=== PATIENT | male | born 1995 | race Hispanic/Latino ===

== ENCOUNTER 2017-10-14 18:47 | Emergency (ER) | payer OTHER ==
[2017-10-14] MEDS: FAMOTIDINE 20 MG TAB PO (19:29)
[2017-10-14] MEDS: methylPREDNISolone INJ 125 MG/2 ML VIAL (J2930) IM (19:29)
== END 2017-10-14 20:26 | disposition home or self-care (01) ==
LOC: M ED 18:47
DX: R21 Rash and other nonspecific skin eruption (principal); R22.0 Localized swelling, mass and lump, head; T78.1XXA Other adverse food reactions, not elsewhere classified, initial encounter
CPT/HCPCS: J2930